=== PATIENT | female | born 1955 | race Hispanic/Latino ===

== ENCOUNTER 2019-02-12 10:20 | Emergency (ER) | payer MEDICARE ==
[2019-02-12 10:29] VITALS: BP 115/71
--- NOTE | 2019-02-12 10:57 | Emergency Department Report ---
ED Abdominal Pain HPI - General Chief Complaint: Nausea/Vomiting/Diarrhea Stated Complaint: STOMACH PAIN/NAUSEA Time Seen by Provider: 02/12/19 10:52 Source: patient Mode of arrival: Ambulatory Limitations: No Limitations - History of Present Illness Initial Comments: Mrs. Vazquez is a very pleasant 63-year-old female with history of alcoholism and polysubstance abuse who presents with nausea and diarrhea. She has mild stomach cramping. Her roommate was seen in the ED last night with similar symptoms. She is currently under treatment at [facility]. She has been eating the communal food. She has mild headache. She tolerated 2 cups of coffee prior to arrival. MD Complaint: abdominal pain -: Gradual, This morning Location: epigastric Migration to: no migration Severity: mild Quality: cramping Consistency: constant, intermittent Worsens With: nothing Context: possible food poisoning, sick contacts - Related Data Previous Rx's Medication Instructions Recorded Last Taken Type Loperamide [Imodium] 2 tab PO TID 2 Days #12 capsule 02/12/19 Unknown Rx Ondansetron [Zofran Odt] 4 mg PO Q8HR #6 tab.rapdis 02/12/19 Unknown Rx Allergies Allergy/AdvReac Type Severity Reaction Status Date / Time codeine Allergy Itching Verified 02/12/19 10:26 ED Review of Systems ROS: Stated complaint: STOMACH PAIN/NAUSEA Other details as noted in HPI Comment: All other systems reviewed and negative Constitutional: denies: fever, malaise Gastrointestinal: abdominal pain, nausea, diarrhea ED Past Medical Hx - Past Medical History Previous Medical History?: Yes Hx Psychiatric Treatment: Yes - Surgical History Past Surgical History?: Yes Additional Surgical History: C section x 5 - Social History Smoking Status: Current Every Day Smoker Substance Use Type: Alcohol, Prescribed - Medications Home Medications: Home Medications Medication Instructions Recorded Confirmed Last Taken Type Loperamide [Imodium] 2 tab PO TID 2 Days #12 capsule 02/12/19 Unknown Rx Ondansetron [Zofran Odt] 4 mg PO Q8HR #6 tab.rapdis 02/12/19 Unknown Rx ED Physical Exam - General Limitations: No Limitations General appearance: alert, in no apparent distress - Head Head exam: Present: atraumatic, normocephalic - Eye Eye exam: Present: normal appearance - ENT ENT exam: Present: mucous membranes moist - Neck Neck exam: Present: normal inspection, full ROM - Respiratory Respiratory exam: Present: normal lung sounds bilaterally. Absent: respiratory distress, wheezes, rales, rhonchi - Cardiovascular Cardiovascular Exam: Present: regular rate, normal rhythm, normal heart sounds. Absent: systolic murmur, diastolic murmur, rubs, gallop - GI/Abdominal GI/Abdominal exam: Present: soft, normal bowel sounds. Absent: distended, tenderness, guarding, rebound - Extremities Exam Extremities exam: Present: normal inspection - Back Exam Back exam: Present: normal inspection - Neurological Exam Neurological exam: Present: alert, oriented X3 - Psychiatric Psychiatric exam: Present: normal affect, normal mood - Skin Skin exam: Present: warm, dry, intact, normal color. Absent: rash ED Course Vital Signs 02/12/19 10:27 Temperature 98.4 F Pulse Rate 88 Respiratory 16 Rate Blood Pressure 115/71 O2 Sat by Pulse 96 Oximetry ED Medical Decision Making - Medical Decision Making Mrs. Noriega Presents with mild symptoms of nausea diarrhea since this morning. Normal abdominal exam. I do not stay peritonitis or acute inflammatory process. She received ibuprofen Zofran Lomotil here in the ED. I have prescribed Zofran and loperamide. Critical care attestation.: If time is entered above; I have spent that time in minutes in the direct care of this critically ill patient, excluding procedure time. ED Disposition Clinical Impression: Diarrhea, Nausea Disposition: DC-01 TO HOME OR SELFCARE Is pt being admited?: No Does the pt Need Aspirin: No Condition: Stable Instructions: Gastroenteritis (ED) Prescriptions: Loperamide [Imodium] 2 tab PO TID 2 Days #12 capsule Ondansetron [Zofran Odt] 4 mg PO Q8HR #6 tab.rapdis Referrals: [facility] [Outside] - 3-5 Days
[2019-02-12] MEDS ORDERED: ZOFRAN ODT PO ONE (10:58)
[2019-02-12] MEDS ORDERED: IMODIUM PO ONE (10:58)
[2019-02-12] MEDS ORDERED: IBUPROFEN PO ONE (10:58)
[2019-02-12] MEDS ORDERED: LOMOTIL PO ONE (10:59)
== END 2019-02-12 11:27 | disposition home or self-care (01) ==
LOC: ED 10:20
DX: R19.7 Diarrhea, unspecified (principal); R11.2 Nausea with vomiting, unspecified; R10.13 Epigastric pain; F17.200 Nicotine dependence, unspecified, uncomplicated; Z88.5 Allergy status to narcotic agent
CPT/HCPCS: 99282; Q0162